=== PATIENT | female | born 1935 | race African-American/Black ===

== ENCOUNTER 2016-12-06 12:01 | Inpatient (IN) | payer MEDICARE ==
[~2016-12-06] VITALS: Ht 162.6 cm; Wt 68.5 kg
[~2016-12-06 12:01] MED LIST: BRIM5DRO6 BOTHEYE; CLON0.1T PO; DORZ10DR7 BOTHEYE; FOLI-43 PO; HYDR2TAB7 PO; IPRA3AMP IH; LATA2.5D2 BOTHEYE; LEVE250T2 PO; LEVO112T2 PO; PANT40TA4 PO; TIMO15DR12 BOTHEYE
[2016-12-06 12:53] LABS: BASOPHILS % 0.5 % (0.0-2.0); EOSINOPHILS % 1.2 % (0.0-5.0); HEMATOCRIT. 39.6 % (36.0-48.0); HEMOGLOBIN. 13.4 g/dL (12.0-16.0); LYMPHOCYTES % 11.6 % (20.0-50.0); MEAN CORPUSCULAR HEMOGLOBIN 27.8 pg (28.0-32.0); MEAN CORPUSCULAR VOLUME 82.4 fL (81.0-99.0); MEAN PLATELET VOLUME 6.8 fl (7.4-10.4); MONOCYTES % 9.5 % (2.0-8.0); NEUTROPHILS % 77.2 % (40.0-76.0); PLATELET 233 x1000/uL (130-400); RED BLOOD CELL COUNT 4.81 mill/uL (4.2-5.4); RED CELL DISTRIBUTION WIDTH 15.7 % (11.6-14.6)
[2016-12-06 13:00] LABS: PROTHROMBIN TIME 10.7 sec (9.4-11.6)
[2016-12-06 13:06] LABS: CARBON DIOXIDE 29 mEq/L (21-32); CHLORIDE 105 mEq/L (98-107)
[2016-12-06] MEDS ORDERED: ONDANSETRON HCL 4MG/2ML VIAL IV ONE (13:15)
[2016-12-06] MEDS ORDERED: GADOBENATE DIMEGLUMINE 529 MG/ML 10ML IV ONE (14:30)
[2016-12-06 15:59] LABS: CLARITY URINE CLEAR (CLEAR); COLOR URINE YELLOW (YELLOW); GLUCOSE URINE NEGATIVE (NEGATIVE); KETONES URINE NEGATIVE (NEGATIVE); LEUKOCYTE ESTERASE URINE NEGATIVE (NEGATIVE); NITRITE URINE NEGATIVE (NEGATIVE); OCCULT BLOOD URINE NEGATIVE (NEGATIVE); PROTEIN URINE NEGATIVE (NEGATIVE); SPECIFIC GRAVITY URINE 1.012 (1.005-1.030); UROBILINOGEN URINE 0.2 E.U./dL (0.2-1.0)
[2016-12-06] MEDS ORDERED: SODIUM CHLORIDE 0.9% 1,000 ML IV ONE (16:11)
[2016-12-06] MEDS ORDERED: ONDANSETRON HCL 4MG/2ML VIAL IV STA (16:11)
[2016-12-06 20:55] VITALS: BP 171/69
[2016-12-06 21:00] VITALS: BP 171/69
[2016-12-06] MEDS ORDERED: MAGNESIUM/ALUMINUM HYDROXIDE/SIMETHICONE 30ML UDC PO PRN (22:00)
[2016-12-06] MEDS ORDERED: GUAIFENESIN 200MG/10ML SUGAR FREE UDC PO PRN (22:00)
[2016-12-06] MEDS ORDERED: ENOXAPARIN 40MG/0.4ML SYR SUBCUT SCH (22:00)
[2016-12-06] MEDS ORDERED: ACETAMINOPHEN 325MG TABLET PO PRN (22:00)
[2016-12-06] MEDS ORDERED: MECLIZINE 12.5MG TABLET PO PRN (22:30)
[2016-12-06] MEDS ORDERED: MVI, ADULT NO.1 10 ML, FOLIC ACID 1 MG, THIAMINE HCL 100 MG in SODIUM CHLORIDE 0.9% 1,0... IV SCH ×4 (23:00)
[2016-12-06] MEDS: ONDANSETRON HCL 4MG/2ML VIAL IV PRN (23:16)
[2016-12-06] MEDS: CLONIDINE 0.1MG TABLET PO PRN (23:17)
[2016-12-07] VITALS: BP 127/55
[2016-12-07] MEDS ORDERED: SODIUM CHL 0.45% + KCL 20MEQ/L 1,000 ML IV SCH
[2016-12-07 00:15] LABS: TROPONIN I 0.05 ng/mL (0.00-0.04)
[2016-12-07 00:16] LABS: CREATINE KINASE MB FRACTION 2.4 ng/mL (0.5-3.6)
[2016-12-07] MEDS: IPRATROPIUM/ALBUTEROL 0.5-3(2.5)MG/3ML NEB HHN SCH ×6 (00:35→20:30)
[2016-12-07 04:00] VITALS: BP 125/84
[2016-12-07 06:41] LABS: CREATINE KINASE MB FRACTION 2.1 ng/mL (0.5-3.6); TROPONIN I 0.03 ng/mL (0.00-0.04)
[2016-12-07 08:00] VITALS: BP_SYST 140; BP_SYST 144; BP_DIAS 51; BP_DIAS 55
[2016-12-07] MEDS: LEVOTHYROXINE SODIUM 112MCG TABLET PO SCH (08:46)
[2016-12-07] MEDS: PANTOPRAZOLE 40MG DR TABLET PO SCH (08:46)
[2016-12-07] MEDS: DORZOLAMIDE 2% OPHTH 10 ML BOTTLE BOTHEYE SCH ×2 (08:47→17:39)
[2016-12-07] MEDS: TIMOLOL MALEATE 0.5% OPHTH DROPS 5ML EACHEYE SCH ×2 (08:47→17:00)
[2016-12-07] MEDS: LEVETIRACETAM 250MG TABLET PO SCH ×2 (08:58→17:38)
[2016-12-07] MEDS: CLONIDINE 0.1MG TABLET PO SCH ×2 (09:00→21:24)
[2016-12-07] MEDS: ENOXAPARIN 30MG/0.3ML SYR SUBCUT SCH (09:01)
[2016-12-07 09:24] LABS: BASOPHILS % 0.7 % (0.0-2.0); EOSINOPHILS % 2.1 % (0.0-5.0); HEMATOCRIT. 35.8 % (36.0-48.0); HEMOGLOBIN. 11.9 g/dL (12.0-16.0); LYMPHOCYTES % 16.3 % (20.0-50.0); MEAN CORPUSCULAR HEMOGLOBIN 27.6 pg (28.0-32.0); MEAN CORPUSCULAR VOLUME 83.3 fL (81.0-99.0); MONOCYTES % 13.4 % (2.0-8.0); NEUTROPHILS % 67.5 % (40.0-76.0); PLATELET 194 x1000/uL (130-400); RED BLOOD CELL COUNT 4.29 mill/uL (4.2-5.4); RED CELL DISTRIBUTION WIDTH 15.5 % (11.6-14.6)
[2016-12-07] MEDS: SODIUM CHL 0.45% + KCL 20MEQ/L 1,000 ML IV SCH ×2 (09:25→21:25)
[2016-12-07] MEDS: FOLIC ACID 1MG TABLET PO SCH (09:25)
[2016-12-07] MEDS ORDERED: HYDROCODONE/ACETAMINOPHEN 5/325MG TABLET PO PRN (09:30)
[2016-12-07] MEDS: HYDROMORPHONE HCL/PF 2MG/ML CPJ IV PRN ×3 (09:32→23:44)
[2016-12-07] MEDS ORDERED: PHENYTOIN SODIUM 500 MG in SODIUM CHLORIDE 0.9% 50 ML IV SCH (10:00)
[2016-12-07 12:00] VITALS: BP 125/47
[2016-12-07] MEDS: PHENYTOIN SODIUM EXTENDED 100MG CAPSULE PO SCH ×2 (17:38→21:24)
[2016-12-07] MEDS: ONDANSETRON HCL 4MG/2ML VIAL IV PRN ×2 (17:47→21:59)
[2016-12-07 20:00] VITALS: BP_SYST 144; BP_SYST 154; BP_DIAS 45; BP_DIAS 48
[2016-12-07] MEDS: LATANOPROST 0.005% OPHTH DROPS 2.5ML BOTHEYE SCH (21:24)
[2016-12-07 23:53] VITALS: BP 164/64
[2016-12-08] MEDS: IPRATROPIUM/ALBUTEROL 0.5-3(2.5)MG/3ML NEB HHN SCH ×5 (00:43→20:19)
[2016-12-08 04:00] VITALS: BP 154/60
[2016-12-08] MEDS: PHENYTOIN SODIUM EXTENDED 100MG CAPSULE PO SCH ×3 (05:39→21:49)
[2016-12-08] MEDS: ONDANSETRON HCL 4MG/2ML VIAL IV PRN ×2 (05:39→08:53)
[2016-12-08 06:47] LABS: BASOPHILS % 0.7 % (0.0-2.0); EOSINOPHILS % 2.2 % (0.0-5.0); HEMATOCRIT. 36.7 % (36.0-48.0); HEMOGLOBIN. 12.4 g/dL (12.0-16.0); LYMPHOCYTES % 18.9 % (20.0-50.0); MEAN CORPUSCULAR HEMOGLOBIN 27.8 pg (28.0-32.0); MEAN CORPUSCULAR VOLUME 82.4 fL (81.0-99.0); MEAN PLATELET VOLUME 7.1 fl (7.4-10.4); MONOCYTES % 10.4 % (2.0-8.0); NEUTROPHILS % 67.8 % (40.0-76.0); PLATELET 200 x1000/uL (130-400); RED BLOOD CELL COUNT 4.46 mill/uL (4.2-5.4); RED CELL DISTRIBUTION WIDTH 15.5 % (11.6-14.6)
[2016-12-08 08:00] VITALS: BP 138/46
[2016-12-08] MEDS: PANTOPRAZOLE 40MG DR TABLET PO SCH (08:18)
[2016-12-08] MEDS: LEVOTHYROXINE SODIUM 112MCG TABLET PO SCH (08:18)
[2016-12-08] MEDS: FOLIC ACID 1MG TABLET PO SCH (08:27)
[2016-12-08] MEDS: CLONIDINE 0.1MG TABLET PO SCH ×2 (08:27→21:49)
[2016-12-08] MEDS: ENOXAPARIN 30MG/0.3ML SYR SUBCUT SCH (08:28)
[2016-12-08] MEDS: LEVETIRACETAM 250MG TABLET PO SCH ×2 (08:30→17:50)
[2016-12-08] MEDS: DORZOLAMIDE 2% OPHTH 10 ML BOTTLE BOTHEYE SCH ×2 (08:36→17:51)
[2016-12-08] MEDS: TIMOLOL MALEATE 0.5% OPHTH DROPS 5ML EACHEYE SCH ×2 (08:36→17:51)
[2016-12-08] MEDS ORDERED: IPRATROPIUM/ALBUTEROL 0.5-3(2.5)MG/3ML NEB HHN PRN (10:45)
[2016-12-08 12:00] VITALS: BP_SYST 151; BP_SYST 158; BP_DIAS 58; BP_DIAS 61
[2016-12-08] MEDS: SODIUM CHL 0.45% + KCL 20MEQ/L 1,000 ML IV SCH (12:45)
[2016-12-08] MEDS: DEXAMETHASONE 4MG/ML 1ML VIAL IV SCH ×2 (12:54→18:01)
[2016-12-08] MEDS: CLONIDINE 0.1MG TABLET PO PRN (14:01)
[2016-12-08] MEDS: BUDESONIDE 0.5MG/2ML NEB HHN SCH ×2 (14:40→20:18)
[2016-12-08 16:00] VITALS: BP 152/65
[2016-12-08] MEDS ORDERED: DEXTROSE 50% WATER 50ML SYRINGE IV PRN (19:45)
[2016-12-08 20:10] VITALS: BP 134/50
[2016-12-08] MEDS: INSULIN LISPRO 100 UNITS/ML SUBCUT SCH (21:00)
[2016-12-08] MEDS: BLOOD SUGAR DIAGNOSTIC STRIP TEST SCH (21:49)
[2016-12-08] MEDS: LATANOPROST 0.005% OPHTH DROPS 2.5ML BOTHEYE SCH (21:49)
[2016-12-09] VITALS (7 sets, daily range): BP systolic 102–140; BP diastolic 46–65
[2016-12-09] MEDS: SODIUM CHL 0.45% + KCL 20MEQ/L 1,000 ML IV SCH ×4 (01:00→22:02)
[2016-12-09] MEDS: DEXAMETHASONE 4MG/ML 1ML VIAL IV SCH ×4 (01:00→17:01)
[2016-12-09] MEDS: IPRATROPIUM/ALBUTEROL 0.5-3(2.5)MG/3ML NEB HHN SCH ×4 (02:53→20:49)
[2016-12-09] MEDS: INSULIN LISPRO 100 UNITS/ML SUBCUT SCH ×3 (06:02→22:00)
[2016-12-09] MEDS: BLOOD SUGAR DIAGNOSTIC STRIP TEST SCH ×4 (06:02→21:00)
[2016-12-09] MEDS: PHENYTOIN SODIUM EXTENDED 100MG CAPSULE PO SCH ×3 (06:31→22:01)
[2016-12-09] MEDS: LEVOTHYROXINE SODIUM 112MCG TABLET PO SCH (06:33)
[2016-12-09] MEDS: PANTOPRAZOLE 40MG DR TABLET PO SCH (06:33)
[2016-12-09 06:40] LABS: BASOPHILS % 0.3 % (0.0-2.0); HEMATOCRIT. 35.4 % (36.0-48.0); HEMOGLOBIN. 12.1 g/dL (12.0-16.0); LYMPHOCYTES % 9.1 % (20.0-50.0); MEAN CORPUSCULAR HEMOGLOBIN 27.7 pg (28.0-32.0); MEAN CORPUSCULAR VOLUME 81.4 fL (81.0-99.0); MEAN PLATELET VOLUME 7.3 fl (7.4-10.4); NEUTROPHILS % 87.6 % (40.0-76.0); PLATELET 195 x1000/uL (130-400); RED BLOOD CELL COUNT 4.35 mill/uL (4.2-5.4); RED CELL DISTRIBUTION WIDTH 15.4 % (11.6-14.6)
[2016-12-09] MEDS: BUDESONIDE 0.5MG/2ML NEB HHN SCH ×2 (08:32→20:50)
[2016-12-09] MEDS: ENOXAPARIN 30MG/0.3ML SYR SUBCUT SCH (09:07)
[2016-12-09] MEDS: LEVETIRACETAM 250MG TABLET PO SCH ×2 (09:08→17:00)
[2016-12-09] MEDS: FOLIC ACID 1MG TABLET PO SCH (09:08)
[2016-12-09] MEDS: DORZOLAMIDE 2% OPHTH 10 ML BOTTLE BOTHEYE SCH ×2 (09:09→16:54)
[2016-12-09] MEDS: CLONIDINE 0.1MG TABLET PO SCH ×2 (09:09→22:01)
[2016-12-09] MEDS: TIMOLOL MALEATE 0.5% OPHTH DROPS 5ML EACHEYE SCH ×2 (09:10→16:54)
[2016-12-09] MEDS: MECLIZINE 12.5MG TABLET PO SCH ×2 (09:14→16:54)
[2016-12-09] MEDS ORDERED: PHENYTOIN SODIUM 500 MG in SODIUM CHLORIDE 0.9% 50 ML IV NR (09:30)
[2016-12-09] MEDS ORDERED: PHENYTOIN SODIUM 300 MG in SODIUM CHLORIDE 0.9% 100 ML IV NR (11:00)
[2016-12-09] MEDS: METOCLOPRAMIDE HCL 5MG TABLET PO SCH ×2 (11:54→17:00)
[2016-12-09] MEDS: LATANOPROST 0.005% OPHTH DROPS 2.5ML BOTHEYE SCH (22:01)
[2016-12-10] MEDS: IPRATROPIUM/ALBUTEROL 0.5-3(2.5)MG/3ML NEB HHN SCH ×4 (00:36→20:09)
[2016-12-10 01:46] VITALS: BP 118/48
[2016-12-10] MEDS: DEXAMETHASONE 4MG/ML 1ML VIAL IV SCH ×4 (01:47→17:00)
[2016-12-10] MEDS: METOCLOPRAMIDE HCL 5MG TABLET PO SCH ×4 (01:47→17:00)
[2016-12-10] MEDS: MECLIZINE 12.5MG TABLET PO SCH ×3 (01:47→16:59)
[2016-12-10 04:00] VITALS: BP 147/57
[2016-12-10] MEDS: PHENYTOIN SODIUM EXTENDED 100MG CAPSULE PO SCH ×3 (05:48→20:32)
[2016-12-10] MEDS: SODIUM CHL 0.45% + KCL 20MEQ/L 1,000 ML IV SCH ×2 (05:49→16:58)
[2016-12-10] MEDS: BLOOD SUGAR DIAGNOSTIC STRIP TEST SCH ×4 (07:29→20:30)
[2016-12-10] MEDS: INSULIN LISPRO 100 UNITS/ML SUBCUT SCH ×4 (07:30→20:30)
[2016-12-10 08:00] VITALS: BP 153/67
[2016-12-10] MEDS: LEVETIRACETAM 250MG TABLET PO SCH ×2 (09:21→17:00)
[2016-12-10] MEDS: PANTOPRAZOLE 40MG DR TABLET PO SCH (09:21)
[2016-12-10] MEDS: CLONIDINE 0.1MG TABLET PO SCH ×2 (09:21→20:32)
[2016-12-10] MEDS: FOLIC ACID 1MG TABLET PO SCH (09:22)
[2016-12-10] MEDS: ENOXAPARIN 40MG/0.4ML SYR SUBCUT SCH (09:22)
[2016-12-10] MEDS: TIMOLOL MALEATE 0.5% OPHTH DROPS 5ML EACHEYE SCH ×2 (09:22→16:59)
[2016-12-10] MEDS: DORZOLAMIDE 2% OPHTH 10 ML BOTTLE BOTHEYE SCH ×2 (09:22→16:59)
[2016-12-10] MEDS: LEVOTHYROXINE SODIUM 112MCG TABLET PO SCH (09:22)
[2016-12-10] MEDS: BUDESONIDE 0.5MG/2ML NEB HHN SCH ×2 (09:49→20:09)
[2016-12-10 12:00] VITALS: BP 145/64
[2016-12-10 16:00] VITALS: BP 135/59
[2016-12-10 20:10] VITALS: BP 149/65
[2016-12-10] MEDS: LATANOPROST 0.005% OPHTH DROPS 2.5ML BOTHEYE SCH (20:33)
[2016-12-11 00:10] VITALS: BP 172/76
[2016-12-11] MEDS: DEXAMETHASONE 4MG/ML 1ML VIAL IV SCH ×4 (01:26→23:43)
[2016-12-11] MEDS: MECLIZINE 12.5MG TABLET PO SCH ×3 (01:26→23:43)
[2016-12-11] MEDS: METOCLOPRAMIDE HCL 5MG TABLET PO SCH ×4 (01:26→23:43)
[2016-12-11] MEDS: SODIUM CHL 0.45% + KCL 20MEQ/L 1,000 ML IV SCH ×3 (01:27→23:14)
[2016-12-11 08:00] VITALS: BP 173/83
[2016-12-11] MEDS: CLONIDINE 0.1MG TABLET PO SCH ×2 (09:00→20:25)
[2016-12-11] MEDS: BUDESONIDE 0.5MG/2ML NEB HHN SCH (10:00)
[2016-12-11] MEDS: IPRATROPIUM/ALBUTEROL 0.5-3(2.5)MG/3ML NEB HHN SCH ×4 (10:00→20:40)
[2016-12-11 12:00] VITALS: BP 139/71
[2016-12-11] MEDS: BLOOD SUGAR DIAGNOSTIC STRIP TEST SCH ×3 (12:40→21:00)
[2016-12-11] MEDS: PHENYTOIN SODIUM EXTENDED 100MG CAPSULE PO SCH ×2 (13:01→22:11)
[2016-12-11] MEDS: INSULIN LISPRO 100 UNITS/ML SUBCUT SCH ×3 (13:03→21:00)
[2016-12-11 16:00] VITALS: BP 142/63
[2016-12-11] MEDS: TIMOLOL MALEATE 0.5% OPHTH DROPS 5ML EACHEYE SCH (16:34)
[2016-12-11] MEDS: DORZOLAMIDE 2% OPHTH 10 ML BOTTLE BOTHEYE SCH (16:34)
[2016-12-11] MEDS: LEVETIRACETAM 250MG TABLET PO SCH (16:43)
[2016-12-11 20:00] VITALS: BP 175/86
[2016-12-11] MEDS: LATANOPROST 0.005% OPHTH DROPS 2.5ML BOTHEYE SCH (20:25)
[2016-12-12] VITALS: BP 171/75
[2016-12-12 04:00] VITALS: BP 190/76
[2016-12-12] MEDS: BLOOD SUGAR DIAGNOSTIC STRIP TEST SCH ×4 (07:40→20:56)
[2016-12-12 08:00] VITALS: BP_SYST 155; BP_SYST 163; BP_DIAS 75
[2016-12-12] MEDS: INSULIN LISPRO 100 UNITS/ML SUBCUT SCH ×4 (08:10→20:56)
[2016-12-12] MEDS: IPRATROPIUM/ALBUTEROL 0.5-3(2.5)MG/3ML NEB HHN SCH ×4 (08:32→16:00)
[2016-12-12] MEDS ORDERED: BISACODYL 5MG TABLET PO SCH (08:45)
[2016-12-12] MEDS: FOLIC ACID 1MG TABLET PO SCH ×2 (09:54→10:02)
[2016-12-12] MEDS: LEVETIRACETAM 250MG TABLET PO SCH ×2 (09:54→17:06)
[2016-12-12] MEDS: LEVOTHYROXINE SODIUM 112MCG TABLET PO SCH ×2 (09:56→10:02)
[2016-12-12] MEDS: ENOXAPARIN 40MG/0.4ML SYR SUBCUT SCH ×2 (09:57→10:03)
[2016-12-12] MEDS: PANTOPRAZOLE 40MG DR TABLET PO SCH ×2 (09:58→10:02)
[2016-12-12] MEDS: CLONIDINE 0.1MG TABLET PO SCH ×2 (09:59→20:56)
[2016-12-12] MEDS: MECLIZINE 12.5MG TABLET PO SCH ×3 (09:59→23:37)
[2016-12-12] MEDS: TIMOLOL MALEATE 0.5% OPHTH DROPS 5ML EACHEYE SCH ×2 (10:00→16:51)
[2016-12-12] MEDS: DORZOLAMIDE 2% OPHTH 10 ML BOTTLE BOTHEYE SCH ×2 (10:01→16:51)
[2016-12-12 12:00] VITALS: BP 147/75
[2016-12-12] MEDS: METOCLOPRAMIDE HCL 5MG TABLET PO SCH ×3 (12:50→23:37)
[2016-12-12] MEDS: PHENYTOIN SODIUM EXTENDED 100MG CAPSULE PO SCH ×2 (12:51→20:57)
[2016-12-12] MEDS: DEXAMETHASONE 4MG/ML 1ML VIAL IV SCH ×3 (12:51→23:37)
[2016-12-12 16:00] VITALS: BP 158/78
[2016-12-12] MEDS ORDERED: ALBUTEROL (0.5%) 2.5MG/0.5ML NEB HHN PRN (19:45)
[2016-12-12 20:00] VITALS: BP 138/62
[2016-12-12] MEDS: LATANOPROST 0.005% OPHTH DROPS 2.5ML BOTHEYE SCH (20:56)
[2016-12-12] MEDS: ALBUTEROL (0.083%) 2.5MG/3ML NEB HHN SCH (21:19)
[2016-12-13] VITALS: BP 123/67
[2016-12-13] MEDS: ACETYLCYSTEINE 100MG/ML 10% VIAL 4ML INH SCH ×3 (00:46→16:25)
[2016-12-13] MEDS: ALBUTEROL (0.083%) 2.5MG/3ML NEB HHN SCH ×6 (00:46→22:04)
[2016-12-13 04:00] VITALS: BP 145/68
[2016-12-13] MEDS: HYDROMORPHONE HCL/PF 2MG/ML CPJ IV PRN ×3 (04:56→20:26)
[2016-12-13] MEDS: DEXAMETHASONE 4MG/ML 1ML VIAL IV SCH ×3 (05:00→17:31)
[2016-12-13] MEDS: PHENYTOIN SODIUM EXTENDED 100MG CAPSULE PO SCH ×3 (05:01→21:05)
[2016-12-13] MEDS: METOCLOPRAMIDE HCL 5MG TABLET PO SCH ×3 (05:01→17:26)
[2016-12-13 07:21] LABS: BASOPHILS % 0.3 % (0.0-2.0); HEMATOCRIT. 42.7 % (36.0-48.0); HEMOGLOBIN. 14.2 g/dL (12.0-16.0); LYMPHOCYTES % 8.8 % (20.0-50.0); MEAN CORPUSCULAR HEMOGLOBIN 27.2 pg (28.0-32.0); MEAN PLATELET VOLUME 7.6 fl (7.4-10.4); NEUTROPHILS % 83.9 % (40.0-76.0); PLATELET 220 x1000/uL (130-400); RED BLOOD CELL COUNT 5.21 mill/uL (4.2-5.4); RED CELL DISTRIBUTION WIDTH 16.2 % (11.6-14.6)
[2016-12-13] MEDS: BLOOD SUGAR DIAGNOSTIC STRIP TEST SCH ×4 (07:40→20:26)
[2016-12-13 08:00] VITALS: BP 169/73
[2016-12-13] MEDS: INSULIN LISPRO 100 UNITS/ML SUBCUT SCH ×4 (08:10→20:28)
[2016-12-13] MEDS: LEVOTHYROXINE SODIUM 112MCG TABLET PO SCH (08:59)
[2016-12-13] MEDS: FAMOTIDINE 20MG TABLET PO SCH (08:59)
[2016-12-13] MEDS: FOLIC ACID 1MG TABLET PO SCH (08:59)
[2016-12-13] MEDS: ENOXAPARIN 40MG/0.4ML SYR SUBCUT SCH (08:59)
[2016-12-13] MEDS: MECLIZINE 12.5MG TABLET PO SCH ×2 (08:59→17:22)
[2016-12-13] MEDS: LEVETIRACETAM 250MG TABLET PO SCH ×2 (08:59→17:31)
[2016-12-13] MEDS: CLONIDINE 0.1MG TABLET PO SCH ×2 (09:04→21:06)
[2016-12-13] MEDS: TIMOLOL MALEATE 0.5% OPHTH DROPS 5ML EACHEYE SCH ×2 (09:08→17:27)
[2016-12-13] MEDS: DORZOLAMIDE 2% OPHTH 10 ML BOTTLE BOTHEYE SCH ×2 (09:08→17:27)
[2016-12-13 12:00] VITALS: BP 151/55
[2016-12-13 16:00] VITALS: BP_SYST 129; BP_SYST 138; BP_DIAS 51; BP_DIAS 57
[2016-12-13] MEDS: BISACODYL 5MG TABLET PO SCH (17:26)
[2016-12-13 20:00] VITALS: BP_SYST 137; BP_SYST 144; BP_DIAS 56; BP_DIAS 58
[2016-12-13] MEDS: LATANOPROST 0.005% OPHTH DROPS 2.5ML BOTHEYE SCH (20:26)
[2016-12-14] VITALS: BP 152/60
[2016-12-14] MEDS: DEXAMETHASONE 4MG/ML 1ML VIAL IV SCH ×5 (01:24→23:50)
[2016-12-14] MEDS: MECLIZINE 12.5MG TABLET PO SCH ×4 (01:24→23:50)
[2016-12-14] MEDS: METOCLOPRAMIDE HCL 5MG TABLET PO SCH ×5 (01:25→23:50)
[2016-12-14] MEDS: ACETYLCYSTEINE 100MG/ML 10% VIAL 4ML INH SCH ×3 (01:45→16:32)
[2016-12-14] MEDS: ALBUTEROL (0.083%) 2.5MG/3ML NEB HHN SCH ×6 (01:45→21:13)
[2016-12-14 04:00] VITALS: BP 150/59
[2016-12-14] MEDS: PHENYTOIN SODIUM EXTENDED 100MG CAPSULE PO SCH ×3 (06:06→21:16)
[2016-12-14] MEDS: BLOOD SUGAR DIAGNOSTIC STRIP TEST SCH ×4 (06:50→21:32)
[2016-12-14] MEDS: INSULIN LISPRO 100 UNITS/ML SUBCUT SCH ×4 (07:30→21:00)
[2016-12-14 07:44] LABS: HEMATOCRIT. 41.4 % (36.0-48.0); HEMOGLOBIN. 13.7 g/dL (12.0-16.0); MEAN CORPUSCULAR HEMOGLOBIN 27.7 pg (28.0-32.0); MEAN CORPUSCULAR VOLUME 83.6 fL (81.0-99.0); RED BLOOD CELL COUNT 4.95 mill/uL (4.2-5.4); RED CELL DISTRIBUTION WIDTH 16.3 % (11.6-14.6)
[2016-12-14 08:00] VITALS: BP_SYST 154; BP_SYST 160; BP_DIAS 110; BP_DIAS 64
[2016-12-14] MEDS: TIMOLOL MALEATE 0.5% OPHTH DROPS 5ML EACHEYE SCH ×2 (09:02→17:58)
[2016-12-14] MEDS: LEVETIRACETAM 250MG TABLET PO SCH ×2 (09:03→17:58)
[2016-12-14] MEDS: FOLIC ACID 1MG TABLET PO SCH (09:03)
[2016-12-14] MEDS: LEVOTHYROXINE SODIUM 112MCG TABLET PO SCH (09:03)
[2016-12-14] MEDS: FAMOTIDINE 20MG TABLET PO SCH (09:04)
[2016-12-14] MEDS: BISACODYL 5MG TABLET PO SCH (09:04)
[2016-12-14] MEDS: CLONIDINE 0.1MG TABLET PO SCH ×2 (09:04→21:17)
[2016-12-14] MEDS: ENOXAPARIN 40MG/0.4ML SYR SUBCUT SCH (09:10)
[2016-12-14] MEDS: DORZOLAMIDE 2% OPHTH 10 ML BOTTLE BOTHEYE SCH ×2 (09:10→17:57)
[2016-12-14 09:20] LABS: MEAN PLATELET VOLUME 8.3 fl (7.4-10.4); PLATELET 194 x1000/uL (130-400); PLATELET ESTIMATE NORMAL
[2016-12-14] MEDS: LIDOCAINE 5% PATCH TOP SCH (11:31)
[2016-12-14 12:00] VITALS: BP 134/53
[2016-12-14 16:00] VITALS: BP 132/57
[2016-12-14 20:00] VITALS: BP_SYST 136; BP_SYST 141; BP_DIAS 42
[2016-12-14] MEDS: LATANOPROST 0.005% OPHTH DROPS 2.5ML BOTHEYE SCH (21:16)
[2016-12-15] VITALS: BP 104/46
[2016-12-15] MEDS: ALBUTEROL (0.083%) 2.5MG/3ML NEB HHN SCH ×6 (01:39→22:27)
[2016-12-15] MEDS: ACETYLCYSTEINE 100MG/ML 10% VIAL 4ML INH SCH ×3 (01:40→17:05)
[2016-12-15 04:00] VITALS: BP 156/68
[2016-12-15] MEDS: DEXAMETHASONE 4MG/ML 1ML VIAL IV SCH ×2 (05:45→12:52)
[2016-12-15] MEDS: PHENYTOIN SODIUM EXTENDED 100MG CAPSULE PO SCH ×3 (05:45→21:19)
[2016-12-15] MEDS: METOCLOPRAMIDE HCL 5MG TABLET PO SCH ×3 (05:45→18:15)
[2016-12-15] MEDS: HYDROMORPHONE HCL/PF 2MG/ML CPJ IV PRN (06:36)
[2016-12-15] MEDS: BLOOD SUGAR DIAGNOSTIC STRIP TEST SCH ×4 (06:51→21:19)
[2016-12-15 07:55] LABS: BASOPHILS % 0.3 % (0.0-2.0); EOSINOPHILS % 0.1 % (0.0-5.0); HEMATOCRIT. 40.5 % (36.0-48.0); HEMOGLOBIN. 13.3 g/dL (12.0-16.0); LYMPHOCYTES % 8.2 % (20.0-50.0); MEAN CORPUSCULAR HEMOGLOBIN 27.1 pg (28.0-32.0); MEAN CORPUSCULAR VOLUME 82.9 fL (81.0-99.0); MEAN PLATELET VOLUME 7.4 fl (7.4-10.4); MONOCYTES % 7.8 % (2.0-8.0); NEUTROPHILS % 83.6 % (40.0-76.0); PLATELET 190 x1000/uL (130-400); RED BLOOD CELL COUNT 4.88 mill/uL (4.2-5.4); RED CELL DISTRIBUTION WIDTH 16.3 % (11.6-14.6)
[2016-12-15 08:00] VITALS: BP 118/67
[2016-12-15] MEDS: INSULIN LISPRO 100 UNITS/ML SUBCUT SCH ×4 (08:10→21:00)
[2016-12-15] MEDS: LEVETIRACETAM 250MG TABLET PO SCH ×2 (09:08→18:14)
[2016-12-15] MEDS: MECLIZINE 12.5MG TABLET PO SCH ×2 (09:08→18:14)
[2016-12-15] MEDS: BISACODYL 5MG TABLET PO SCH (09:08)
[2016-12-15] MEDS: LEVOTHYROXINE SODIUM 112MCG TABLET PO SCH (09:08)
[2016-12-15] MEDS: FAMOTIDINE 20MG TABLET PO SCH (09:08)
[2016-12-15] MEDS: FOLIC ACID 1MG TABLET PO SCH (09:08)
[2016-12-15] MEDS: CLONIDINE 0.1MG TABLET PO SCH ×2 (09:08→21:18)
[2016-12-15] MEDS: DORZOLAMIDE 2% OPHTH 10 ML BOTTLE BOTHEYE SCH ×2 (09:09→18:16)
[2016-12-15] MEDS: TIMOLOL MALEATE 0.5% OPHTH DROPS 5ML EACHEYE SCH ×2 (09:09→18:16)
[2016-12-15] MEDS: LIDOCAINE 5% PATCH TOP SCH (09:10)
[2016-12-15] MEDS: ENOXAPARIN 40MG/0.4ML SYR SUBCUT SCH (09:10)
[2016-12-15 12:00] VITALS: BP 136/50
[2016-12-15 16:00] VITALS: BP 123/50
[2016-12-15] MEDS: DEXAMETHASONE 4MG TABLET PO SCH (18:15)
[2016-12-15 20:00] VITALS: BP_SYST 125; BP_SYST 135; BP_DIAS 52; BP_DIAS 56
[2016-12-15] MEDS: LATANOPROST 0.005% OPHTH DROPS 2.5ML BOTHEYE SCH (21:18)
[2016-12-16] VITALS: BP 132/52
[2016-12-16] MEDS: METOCLOPRAMIDE HCL 5MG TABLET PO SCH ×4 (00:19→17:21)
[2016-12-16] MEDS: MECLIZINE 12.5MG TABLET PO SCH ×3 (00:21→17:21)
[2016-12-16] MEDS: DEXAMETHASONE 4MG TABLET PO SCH ×4 (00:22→17:22)
[2016-12-16] MEDS: ALBUTEROL (0.083%) 2.5MG/3ML NEB HHN SCH ×6 (01:30→20:55)
[2016-12-16] MEDS: ACETYLCYSTEINE 100MG/ML 10% VIAL 4ML INH SCH ×4 (01:30→21:23)
[2016-12-16 04:00] VITALS: BP 155/62
[2016-12-16] MEDS: PHENYTOIN SODIUM EXTENDED 100MG CAPSULE PO SCH ×3 (06:21→21:23)
[2016-12-16] MEDS: BLOOD SUGAR DIAGNOSTIC STRIP TEST SCH ×3 (07:40→21:00)
[2016-12-16 08:00] VITALS: BP 139/60
[2016-12-16] MEDS: INSULIN LISPRO 100 UNITS/ML SUBCUT SCH ×3 (08:10→21:00)
[2016-12-16] MEDS: LEVOTHYROXINE SODIUM 112MCG TABLET PO SCH (08:50)
[2016-12-16] MEDS: LEVETIRACETAM 250MG TABLET PO SCH ×2 (08:50→17:21)
[2016-12-16] MEDS: CLONIDINE 0.1MG TABLET PO SCH ×2 (08:50→21:24)
[2016-12-16] MEDS: BISACODYL 5MG TABLET PO SCH (08:51)
[2016-12-16] MEDS: FAMOTIDINE 20MG TABLET PO SCH (08:51)
[2016-12-16] MEDS: TIMOLOL MALEATE 0.5% OPHTH DROPS 5ML EACHEYE SCH ×2 (08:51→17:24)
[2016-12-16] MEDS: DORZOLAMIDE 2% OPHTH 10 ML BOTTLE BOTHEYE SCH ×2 (08:51→17:24)
[2016-12-16] MEDS: FOLIC ACID 1MG TABLET PO SCH (08:51)
[2016-12-16] MEDS: ENOXAPARIN 40MG/0.4ML SYR SUBCUT SCH (08:52)
[2016-12-16] MEDS: LIDOCAINE 5% PATCH TOP SCH (08:52)
[2016-12-16] MEDS ORDERED: SORBITOL 70% SOLN 30ML PO NR (09:15)
[2016-12-16 12:00] VITALS: BP 144/56
[2016-12-16 16:00] VITALS: BP 136/68
[2016-12-16 20:00] VITALS: BP 131/53
[2016-12-16] MEDS: LATANOPROST 0.005% OPHTH DROPS 2.5ML BOTHEYE SCH (21:23)
[2016-12-17] VITALS (7 sets, daily range): BP systolic 113–163; BP diastolic 51–68
[2016-12-17] MEDS: MECLIZINE 12.5MG TABLET PO SCH ×4 (00:57→23:52)
[2016-12-17] MEDS: DEXAMETHASONE 4MG TABLET PO SCH ×5 (00:57→23:52)
[2016-12-17] MEDS: METOCLOPRAMIDE HCL 5MG TABLET PO SCH ×5 (00:58→23:52)
[2016-12-17] MEDS: ACETYLCYSTEINE 100MG/ML 10% VIAL 4ML INH SCH ×2 (01:44→08:11)
[2016-12-17] MEDS: ALBUTEROL (0.083%) 2.5MG/3ML NEB HHN SCH ×6 (01:44→20:38)
[2016-12-17] MEDS: PHENYTOIN SODIUM EXTENDED 100MG CAPSULE PO SCH ×3 (05:34→21:52)
[2016-12-17] MEDS: BLOOD SUGAR DIAGNOSTIC STRIP TEST SCH ×4 (05:34→21:52)
[2016-12-17] MEDS: INSULIN LISPRO 100 UNITS/ML SUBCUT SCH ×4 (05:40→21:00)
[2016-12-17] MEDS: HYDROMORPHONE HCL/PF 2MG/ML CPJ IV PRN (06:36)
[2016-12-17] MEDS: TIMOLOL MALEATE 0.5% OPHTH DROPS 5ML EACHEYE SCH ×2 (09:02→17:57)
[2016-12-17] MEDS: FOLIC ACID 1MG TABLET PO SCH (09:03)
[2016-12-17] MEDS: LEVOTHYROXINE SODIUM 112MCG TABLET PO SCH (09:04)
[2016-12-17] MEDS: CLONIDINE 0.1MG TABLET PO SCH ×2 (09:04→21:52)
[2016-12-17] MEDS: FAMOTIDINE 20MG TABLET PO SCH (09:06)
[2016-12-17] MEDS: LEVETIRACETAM 250MG TABLET PO SCH ×2 (09:06→17:53)
[2016-12-17] MEDS: ENOXAPARIN 40MG/0.4ML SYR SUBCUT SCH (09:07)
[2016-12-17] MEDS: BISACODYL 5MG TABLET PO SCH (09:07)
[2016-12-17] MEDS: DORZOLAMIDE 2% OPHTH 10 ML BOTTLE BOTHEYE SCH ×2 (09:09→17:55)
[2016-12-17] MEDS: LIDOCAINE 5% PATCH TOP SCH (09:11)
[2016-12-17] MEDS: LATANOPROST 0.005% OPHTH DROPS 2.5ML BOTHEYE SCH (21:52)
[2016-12-18] VITALS: BP_SYST 148; BP_DIAS 58; BP_DIAS 60
[2016-12-18] MEDS: ALBUTEROL (0.083%) 2.5MG/3ML NEB HHN SCH ×2 (00:23→04:48)
[2016-12-18] MEDS: ACETYLCYSTEINE 100MG/ML 10% VIAL 4ML INH SCH ×2 (00:24→09:25)
[2016-12-18 04:00] VITALS: BP 146/89
[2016-12-18 06:03] LABS: BASOPHILS % 0.4 % (0.0-2.0); EOSINOPHILS % 1.4 % (0.0-5.0); HEMATOCRIT. 34.5 % (36.0-48.0); HEMOGLOBIN. 11.4 g/dL (12.0-16.0); LYMPHOCYTES % 11.4 % (20.0-50.0); MEAN CORPUSCULAR HEMOGLOBIN 27.4 pg (28.0-32.0); MEAN CORPUSCULAR VOLUME 82.7 fL (81.0-99.0); MEAN PLATELET VOLUME 7.5 fl (7.4-10.4); MONOCYTES % 10.8 % (2.0-8.0); PLATELET 175 x1000/uL (130-400); RED BLOOD CELL COUNT 4.17 mill/uL (4.2-5.4); RED CELL DISTRIBUTION WIDTH 15.8 % (11.6-14.6)
[2016-12-18] MEDS: INSULIN LISPRO 100 UNITS/ML SUBCUT SCH (06:39)
[2016-12-18] MEDS: BLOOD SUGAR DIAGNOSTIC STRIP TEST SCH (06:39)
[2016-12-18] MEDS: METOCLOPRAMIDE HCL 5MG TABLET PO SCH (07:13)
[2016-12-18] MEDS: LEVOTHYROXINE SODIUM 112MCG TABLET PO SCH (07:13)
[2016-12-18] MEDS: PHENYTOIN SODIUM EXTENDED 100MG CAPSULE PO SCH (07:13)
[2016-12-18] MEDS: DEXAMETHASONE 4MG TABLET PO SCH (07:13)
[2016-12-18 08:00] VITALS: BP_SYST 160; BP_SYST 165; BP_DIAS 68
[2016-12-18] MEDS: TIMOLOL MALEATE 0.5% OPHTH DROPS 5ML EACHEYE SCH (09:07)
[2016-12-18] MEDS: BISACODYL 5MG TABLET PO SCH (09:07)
[2016-12-18] MEDS: DORZOLAMIDE 2% OPHTH 10 ML BOTTLE BOTHEYE SCH (09:07)
[2016-12-18] MEDS: MECLIZINE 12.5MG TABLET PO SCH (09:08)
[2016-12-18] MEDS: CLONIDINE 0.1MG TABLET PO SCH (09:09)
[2016-12-18 09:10] VITALS: BP 165/68
[2016-12-18] MEDS: LIDOCAINE 5% PATCH TOP SCH (09:10)
[2016-12-18] MEDS: ENOXAPARIN 40MG/0.4ML SYR SUBCUT SCH (09:11)
[2016-12-18] MEDS: LEVETIRACETAM 250MG TABLET PO SCH (09:15)
[2016-12-18] MEDS: FAMOTIDINE 20MG TABLET PO SCH (09:15)
[2016-12-18] MEDS: FOLIC ACID 1MG TABLET PO SCH (09:15)
== END 2016-12-18 10:05 | disposition home health service (06) | DRG 54 ==
LOC: ER 12:01 → 7WST 16:23 → EDBEDREQSVC 16:28 → EDBEDREQ 16:28 → EDBEDREQTM 16:28 → ENRESERV 18:55
PROVIDERS: ADMIT Internal Medicine Geriatric Medicine; ATTEND Internal Medicine Geriatric Medicine
PROC: 4A00X4Z Measurement of Central Nervous Electrical Activity, External Approach (ICD-10-PCS; principal; 2016-12-10)
DX: C79.31 Secondary malignant neoplasm of brain (principal); G93.40 Encephalopathy, unspecified; J96.20 Acute and chronic respiratory failure, unspecified whether with hypoxia or hypercapnia; E43 Unspecified severe protein-calorie malnutrition; I82.412 Acute embolism and thrombosis of left femoral vein; J44.1 Chronic obstructive pulmonary disease with (acute) exacerbation; E86.0 Dehydration; Z99.81 Dependence on supplemental oxygen; C34.90 Malignant neoplasm of unspecified part of unspecified bronchus or lung; D63.8 Anemia in other chronic diseases classified elsewhere; E83.51 Hypocalcemia; G90.8 Other disorders of autonomic nervous system; Z66 Do not resuscitate; D50.9 Iron deficiency anemia, unspecified; G40.909 Epilepsy, unspecified, not intractable, without status epilepticus; E03.9 Hypothyroidism, unspecified; H40.9 Unspecified glaucoma; I10 Essential (primary) hypertension; J44.9 Chronic obstructive pulmonary disease, unspecified; K25.9 Gastric ulcer, unspecified as acute or chronic, without hemorrhage or perforation; K59.09 Other constipation; M19.90 Unspecified osteoarthritis, unspecified site; M48.00 Spinal stenosis, site unspecified; Z96.649 Presence of unspecified artificial hip joint; Z51.5 Encounter for palliative care; Z82.0 Family history of epilepsy and other diseases of the nervous system; Z82.49 Family history of ischemic heart disease and other diseases of the circulatory system; Z82.5 Family history of asthma and other chronic lower respiratory diseases; Z83.6 Family history of other diseases of the respiratory system; Z81.8 Family history of other mental and behavioral disorders; Z84.1 Family history of disorders of kidney and ureter; Z92.3 Personal history of irradiation; Z88.2 Allergy status to sulfonamides; Z91.048 Other nonmedicinal substance allergy status; Z88.5 Allergy status to narcotic agent; Z79.899 Other long term (current) drug therapy; Z68.25 Body mass index [BMI] 25.0-25.9, adult
CPT/HCPCS: 36415; 70450; 70553; 71010; 71260; 80048; 80053; 80185; 81003; 82533; 82553; 82962; 83605; 84443; 84484; 85025; 85610; 87040; 87086; 93005; 93306; 93970; 94640; 94664; 96361; 96374; 96376; 97110; 97116; 97162; 97530; 99285; A6261; A9577; J1100; J1165; J1170; J1650; J1815; J2405; J3411; J3480; J3490; J7030; J7050; J7608; J7611; J7620; J7626; J8540; J8597